=== PATIENT | female | born 1995 | race Caucasian/White ===

== ENCOUNTER 2017-01-07 05:51 | Emergency (ER) | payer BC ==
[~2017-01-07] VITALS: Ht 170.2 cm; Wt 49.5 kg
[2017-01-07] MEDS ORDERED: ONDANSETRON 2MG/ML, 2ML ONE ×2 (06:34→07:38)
[2017-01-07] MEDS ORDERED: SODIUM CHLORIDE 0.9% 1,000ML IVBOLUS ONE (07:00)
[2017-01-07] MEDS ORDERED: SODIUM CHLORIDE FLUSH 10ML SYR IVF ONE (07:00)
[2017-01-07] MEDS ORDERED: ONDANSETRON 2MG/ML, 2ML IVPush ONE ×2 (07:00→08:00)
[2017-01-07 07:13] LABS: ASPARTATE AMINO TRANSFERASE 36 U/L (15-37); BLOOD UREA NITROGEN 9 mg/dL (7-18)
[2017-01-07 07:17] VITALS: BP 100/60
[2017-01-07] MEDS ORDERED: POTASSIUM CHLORIDE 20 MEQ TAB.ER.PRT ONE (07:34)
[2017-01-07] MEDS ORDERED: POTASSIUM CHLORIDE 20 MEQ TAB.ER.PRT PO ONE (08:00)
[2017-01-07] MEDS ORDERED: METOCLOPRAMIDE 5 MG/ML, 2ML ONE (08:21)
[2017-01-07] MEDS ORDERED: METOCLOPRAMIDE 5 MG/ML, 2ML IVPush ONE (08:30)
== END 2017-01-07 09:41 | disposition home or self-care (01) ==
LOC: ED 07:40
DX: K29.00 Acute gastritis without bleeding (principal); F12.10 Cannabis abuse, uncomplicated
CPT/HCPCS: 36415; 80053; 83690; 84703; 85025; 96374; 96375; 96376; 99284; J2405; J2765; J7030